=== PATIENT | male | born 1965 | race Caucasian/White ===

== ENCOUNTER → 2018-10-05 | Outpatient (CLI) | payer BC ==
[2018-10-05 13:03] LABS: HCT 41.3 % (39.0-53.0); HGB 14.5 gm/dL (13.0-17.5); MCH 29.6 pg (25.0-35.0); MCHC 35.1 g/dL (31.0-37.0); MCV 84.2 fL (80.0-100.0); Mean Platelet Volume 7.5; Platelet Count 209 k/uL (150-450); RDW 13.3 % (11.5-15.5); WBC 7.5 k/uL (3.8-10.6)
[2018-10-05 13:09] LABS: Partial Thromboplastin Time 24.3 sec (22.0-30.0); Prothrombin Time 10.3 sec (9.0-12.0)
[2018-10-05 13:14] LABS: Appearance,Urine Clear (Clear); Bilirubin,Urine 2+ (Negative); Blood,Urine Negative (Negative); Color,Urine Yellow; Glucose,Urine (UA) Negative (Negative); Ketones,Urine Negative (Negative); Leukocyte Esterase,Urine Negative (Negative); Nitrite,Urine Negative (Negative); PH, Urine 6.5 (5.0-8.0); Protein,Urine Negative (Negative); Specific Gravity,Urine 1.012 (1.001-1.035); Urobilinogen,Urine <2.0 mg/dL (<2.0)
[2018-10-05 13:29] LABS: Anion Gap 8 mmol/L; Blood Urea Nitrogen 18 mg/dL (9-20); Carbon Dioxide 26 mmol/L (22-30); Chloride 107 mmol/L (98-107); Potassium 4.6 mmol/L (3.5-5.1); Sodium 141 mmol/L (137-145)
== END | disposition home or self-care (01) ==
LOC: LABPAT 11:39
PROVIDERS: ATTEND Orthopaedic Surgery
DX: Z01.812 Encounter for preprocedural laboratory examination (principal)
CPT/HCPCS: 80051; 81003; 82565; 84520; 85027; 85610; 85730; 87070

== ENCOUNTER 2018-10-13 05:39 | Inpatient (IN) | payer BC ==
[~2018-10-13 05:39] MED LIST: ACETAMINOPHEN TAB 500 MG TAB PO ONE; DEXAMETHASONE SOD PHOSPHATE 10 MG/ML 1 ML VIAL IV ONE; HYDROmorphone 0.5 MG/0.5 ML SYRINGE IVP PRN; LIDOCAINE 1% 20 ML VIAL (10MG/ML) FOR IV START INTRADERMA PRN; MELOXICAM 7.5 MG TAB PO ONE; MIDAZOLAM 2 MG/2 ML VIAL IV PRN; ONDANSETRON 4 MG/2 ML VIAL IVP ONE; SCOPOLAMINE 1.5MG/72HR PATCH TRANSDERM ONE; TRANEXAMIC ACID 1,000 MG in SODIUM CHLORIDE 0.9% 100 ML IVPB ONE; ceFAZolin IN SWFI 2 GM/20 ML SYRINGE IVP ONE
[2018-10-13] MEDS: LACTATED RINGERS 1,000 ML IV SCH (06:11)
[2018-10-13] MEDS ORDERED: fentaNYL (PF) 50 MCG/ML 2 ML AMP IV ONE (06:45)
[2018-10-13] MEDS ORDERED: PROPOFOL 10 MG/ML 20 ML VIAL IV ONE (06:55)
[2018-10-13] MEDS ORDERED: SODIUM CHLORIDE 0.9% 100 ML BAG ONE (06:55)
[2018-10-13] MEDS ORDERED: MIDAZOLAM 2 MG/2 ML VIAL ONE (06:55)
[2018-10-13] MEDS ORDERED: fentaNYL (PF) 50 MCG/ML 2 ML AMP ONE (06:55)
[2018-10-13] MEDS ORDERED: TRANEXAMIC ACID 1,000 MG/10 ML VIAL ONE (06:55)
[2018-10-13] MEDS ORDERED: NA PHOS,M-B/NA PHOS,DI-BA 133 ML ENEMA RECTAL PRN (06:56)
[2018-10-13] MEDS ORDERED: HYDROcodone/APAP 5-325MG 1 EACH TAB PO PRN (06:56)
[2018-10-13] MEDS ORDERED: NALOXONE 0.4 MG/ML 1 ML VIAL IV PRN (06:56)
[2018-10-13] MEDS ORDERED: BISACODYL 10 MG SUPP RECTAL PRN (06:56)
[2018-10-13] MEDS ORDERED: HYDROmorphone 1 MG/ML 1 ML SYRINGE IVP PRN (06:56)
[2018-10-13] MEDS ORDERED: HYDROmorphone 0.5 MG/0.5 ML SYRINGE IVP PRN ×2 (06:56)
[2018-10-13] MEDS ORDERED: DIAZEPAM 5 MG TAB PO PRN (06:56)
[2018-10-13] MEDS ORDERED: MAGNESIUM HYDROXIDE 2,400 MG/10 ML CUP PO PRN (06:56)
[2018-10-13] MEDS: ROPIVACAINE 246.25 MG, EPINEPHrine 0.5 MG, KETOROLAC 30 MG, cloNIDine HCL/PF 80 MCG, WA... MISCELLANE ONE ×10 (06:59→08:06)
[2018-10-13] MEDS ORDERED: SODIUM CHLORIDE 0.9% 100 ML with ceFAZolin 2,000 MG IV ONE ×2 (07:17)
[2018-10-13] MEDS ORDERED: ROPIVACAINE 1,100 MG, SODIUM CHLORIDE 0.9% 500 ML 330 ML MISCELLANE PRN ×2 (07:39)
--- NOTE | 2018-10-13 07:41 | P.ONQ ---
Anesthesiology Proc Note - PNB - Peripheral Nerve Block Performed Right Adductor Canal Infusion Time Out Performed: Yes Procedure Start Time: 06:43 Indication: Acute Post-Operative Pain, Analgesia Specifically requested for management of pain by DrVipin: Amado Subramanian Sedation Type: Sedate with meaningful contact maintained Preparation: Sterile Prep Position: Supine Catheter Depth at Skin (cm): 7 Catheter: Indwelling Needle Types: Other (see comment) (Pajunk) Needle Size: 100mm (4") Needle Gauge: 18 Technique: Ultrasound Injectate: 0.5% Ropivacaine (see comment for volume) (20cc) Blood Aspirated: No Pain Paresthesia on Injection Noted: No Resistance on Injection: Normal Events: Uneventful and Well Tolerated
--- NOTE | 2018-10-13 08:41 | P.OP ---
Date of Procedure: 10/13/18 Preoperative Diagnosis: Severe osteoarthritis right knee Postoperative Diagnosis: Severe osteoarthritis right knee Procedure(s) Performed: Right total knee arthroplasty Implants: Basilio and Nephew Journey II CR Oxinium cruciate retaining femoral component size 6, right Basilio & Nephew Journey right nonporous tibial baseplate size 6 Basilio & Nephew Journey II, XLPE CR articular insert, size 9 mm, Size 5-6 right Basilio & Nephew Journey BCS resurfacing oval patellar component, 32 mm All components were cemented using Palacos R bone cement.. The articulation is Oxinium on polyethylene. Anesthesia: spinal Surgeon: Amado Subramanian Software Quality Assurance Specialist #1: Sabine Fatima Estimated Blood Loss (ml): 25 Pathology: other (Bone and cartilage) Condition: stable Disposition: PACU Indications for Procedure: After failure of conservative treatment we discussed the surgical and nonsurgical treatment options at length. Patient wishes to proceed with a total knee arthroplasty. Complications specific to this procedure were discussed at length, including but not limited to infection, bleeding, stiffness , and nerve injury. Patient is aware of all these complications and informed consent was obtained Operative Findings: The operative findings are consistent with severe osteoarthritis of the right knee Description of Procedure: Patient was seen in the preoperative area consent was reviewed and operative site was marked with a skin marker. An adductor canal pain catheter was placed by anesthesia in the preoperative area. Patient was then brought to the operating room and given preoperative antibiotics intravenously. A spinal anesthetic was administered by the anesthesia department. A tourniquet was placed on the upper thigh and the lower extremity was prepped and draped in usual sterile fashion. A gram of transexamic acid was given. A universal timeout was then performed which confirmed the patient's name, surgical site, ALLERGIES, and consent. The lower extremity was then exsanguinated and tourniquet was inflated to 250 mmHg. A standard and anterior midline approach to the knee was performed. The skin and subcutaneous tissue was dissected down to the patellar tendon. A medial parapatellar arthrotomy was then performed. The knee was then extended, the patellar was everted, and the knee was again flexed. Anterior horns of both menisci were excised, and a release was performed to the posterior medial aspect of the knee. On gross visual inspection, there was complete loss of articular cartilage in the medial and patellofemoral joint spaces. There was also significant cartilage damage in the lateral compartment. There were multiple periarticular osteophytes which were then removed with a Ronguer. The femoral canal was then opened with the appropriate drill, and the intramedullary femoral cutting guide was then placed and set for 5 of valgus. The distal femoral cutting block was then pinned in place, and the distal femur was then cut. The cutting block was then removed and the cut was checked for flatness. Next, the sizing guide was then placed and set for 3 external rotation based off of the epicondylar axis and Whitesides line. After the femur was sized, the appropriate 4-in-1 cutting block was then pinned in place. The anterior condyles were cut without notching. The posterior and chamfer cuts were performed while protecting the collateral ligaments. The cutting block was then removed, and the femoral canal was plugged with autologous bone. Attention was then directed to the tibia. The remaining ACL was removed with a Ronguer, and the tibia was then gently subluxed forward with a large bent knee retractor. Any remaining menisci was excised. The posterior lateral corner was cauterized in order to cauterize the lateral geniculate artery. The extra medullary tibial cutting guide was then placed, set for the appropriate rotation , slope, and depth of resection. The proximal tibia cutting guide was then pinned in place. Proximal tibia was then cut and sized. Next trials were then placed with the appropriate-sized insert. The knee was able to fully extend and flex to 130 and was stable throughout all range of motion. The knee was then extended, patella everted. Patella was then measured, and then using an osteotomy guide, the patella was cut at the appropriate level. The patella was then measured and drilled and the patella trial was then placed. The knee was then taken through range of motion with the patella trial and the patella tracked normally. The knee was then extended patella trial was then removed and the patella was everted. Knee was then flexed and lug holes were drilled through the femoral trial and the femoral trial was then removed. The tibial was then exposed, and the tibial broach guide was then pinned in place after it was set for the appropriate rotation to allow for the most coverage without overhang. The tibia was then reamed and broached. The cut surfaces of bone were then irrigated with pulsatile lavage. The posterior structures were injected with the ropivacaine solution. The knee was also irrigated with Irrisept solution. The components were then opened, the cement was mixed, and the components were then cemented in place. The cement was allowed to harden with the knee in full extension. While the cement was hardening, the remaining soft tissues were then injected with a ropivacaine solution, which consisted of 246.25 mg of ropivacaine, 0.5 mg of epinephrine, 30 mg of Toradol, 80 g of clonidine, and 48.45 mL of sterile water, for a total of 100 mL of fluid injected. After the cemented hardened. The tourniquet was released, and hemostasis was obtained. A second gram of transexamic acid was given. The knee was again irrigated. The knee was again taken through range of motion and found to be stable throughout all range of motion of 0-130 , and the patella tracked normally. The fascia was then closed with #2 strata fix suture. The subcutaneous tissue was closed with 3-0 Vicryl and 3-0 strata fix. Dermabond glue was used for the skin and placed with the knee in flexion. The patient was placed in a sterile silver dressing. Patient was then transferred to recovery room in stable condition. The special education assistant CHAD Ma was required due the complexity surgery and the need for a skilled surgical brace maker. She assisted in positioning, draping, retraction, and closure of the wound.
[2018-10-13 09:21] VITALS: RESP 16
--- NOTE | 2018-10-13 09:27 | XR ---
EXAMINATION TYPE: XR knee limited RT DATE OF EXAM: 10/13/2018 COMPARISON: NONE TECHNIQUE: Two views submitted HISTORY: Post op FINDINGS: There is a prosthetic knee in near anatomic alignment. There is soft tissue edema and emphysema. So ft tissue edema and extensive emphysema noted. IMPRESSION: 1. Postoperative change. Appears in near-anatomic alignment
[2018-10-13] MEDS: ASPIRIN 325 MG TAB PO SCH ×2 (10:29→20:00)
[2018-10-13] MEDS: ONDANSETRON 4 MG/2 ML VIAL IVP PRN ×2 (10:43→21:24)
[2018-10-13 10:54] VITALS: BMI 27.3
--- NOTE | 2018-10-13 11:00 | P.PN ---
Progress Note - Text Progress Note Date: 10/13/18 The patient is status post[ 1 right] adductor canal catheter placement. The catheter was placed for postoperative pain control, status post total [Right Knee] arthroplasty. Ropivacaine 0.2% is infusing at[ 4] mLs per hour. The patient has no complaints of[ ] lower extremity numbness or weakness. Patient' s VAS score is[ 4]-10. Assessment: Patient's adductor canal catheter is in place and working appropriately. Plan: continue infusion and adjust it as needed.
[2018-10-13] MEDS: SODIUM CHLORIDE 0.9% 1,000 ML IV SCH ×2 (11:27→22:17)
[2018-10-13] MEDS ORDERED: ALBUTEROL NEBULIZED 2.5 MG/3 ML INHALATION PRN (11:51)
[2018-10-13] MEDS: ALBUTEROL NEBULIZED 2.5 MG/3 ML INHALATION SCH ×2 (13:05→20:35)
[2018-10-13] MEDS: hydrOXYzine PAMOATE 25 MG CAP PO PRN ×2 (14:34→20:01)
[2018-10-13] MEDS: ceFAZolin IN SWFI 2 GM/20 ML SYRINGE IVP SCH ×2 (16:21→23:28)
[2018-10-13] MEDS: HYDROcodone/APAP 5-325MG 1 EACH TAB PO PRN (20:00)
[2018-10-13] MEDS: SENNOSIDES-DOCUSATE SODIUM 1 EACH TAB PO SCH (20:01)
[2018-10-13] MEDS: TAMSULOSIN 0.4 MG CAP.ER.24H PO SCH (20:01)
[2018-10-13] MEDS: SYMBICORT 160-4.5 MCG INHALER INHALATION SCH (20:35)
--- NOTE | 2018-10-13 23:10 | CONS ---
CONSULTATION DATE OF SERVICE: 10/13/2018 REASON FOR CONSULTATION: Advice regarding asthma, hypertension, multiple medical issues requested by Dr. Subramanian. HISTORY OF PRESENT ILLNESS: This 53-year-old gentleman with past medical history of asthma, hypertension, DJD, history of prostate disease, appendectomy, hernia repair being followed by Dr. Dougherty in the outpatient setting, underwent right total knee arthroplasty. The patient being closely monitored. There is no history of fever, rigors. No history of headache, loss of consciousness, seizures. No chest pain. No palpitations. PAST MEDICAL HISTORY: History of asthma, GERD, hypertension, DJD, history of prostate disorder, appendectomy, hernia repair. MEDICATIONS: Prior to admission home medications are reviewed and include: 1. Flomax 0.4 daily. 2. Omeprazole 20 mg daily. 3. Fish oil 1 p.o. daily. 4. Dilaudid. 5. Singular 10 mg q.h.s. 6. Zestril 10 mg daily. 7. Levothyroxine 100 mcg. 8. Advair 500/50 1 puff b.i.d. 9. Lodine 400 mg p.o. daily. ALLERGIES: FEATHERS AND MOLD. FAMILY HISTORY: No history of heart disease or strokes in the family. SOCIAL HISTORY: Previous history of smoking. No history of current smoking or alcohol intake. REVIEW OF SYSTEMS: ENT: No diminished hearing or vision. CARDIOVASCULAR SYSTEM: No angina. Mentioned earlier. GASTROINTESTINAL: No nausea or vomiting. no dysuria. NERVOUS SYSTEM: No numbness, weakness. ALLERGY/IMMUNOLOGY: As mentioned earlier. Hematology/Oncology: No history of anemia. ENDOCRINE: Hypothyroidism. CONSTITUTIONAL: As mentioned earlier. Dermatology: Negative. Rheumatology: Negative. Psychiatry: As mentioned earlier. PHYSICAL EXAMINATION: Alert and oriented times three. Pulse is 54, blood pressure is 114/73. Respiration 20. Temperature is normal. Pulse ox 92% on room air. HEENT: Conjunctivae normal. NECK: No jugular venous distention. Cardiovascular: S1, S2 muffled. RESPIRATORY : Breath sounds diminished in the bases. Bilateral scattered rhonchi and crackles. ABDOMEN: Soft, nontender. Legs status post surgery. Nervous system: Higher functions as mentioned earlier. Moves all four extremities. Lymphatics: No lymph nodes palpable in the neck, axillae or groin. Skin: No ulcer. No rash. Joints as mentioned earlier. LABS: Preop labs are noted within normal limits. ASSESSMENT: 1. Status post right total knee arthroplasty for severe degenerative joint disease. 2. Asthma mild intermittant 3. Gastroesophageal reflux disease. 4. Hypertension. 5. History of prostate disorder. 6. Appendectomy. 7. History of tonsillectomy. 8. Remote history of nicotine dependence. 9. FULL CODE. RECOMMENDATIONS AND DISCUSSION: In this 53-year-old gentleman who presented with multiple times after surgery. At this time, I recommend to continue current medications, management and symptomatic treatment. Otherwise at this time, I recommend resume the home medications and DVT prophylaxis. I would recommend incentive spirometry. Monitor blood pressure closely. We will follow the patient closely with you. The patient is to follow with primary physician closely after discharge. Thank you, Dr. Subramanian for letting us participate in the care of this patient. JOSIE / JARAD: [id number] / MTDD
[2018-10-14] MEDS: hydrOXYzine PAMOATE 25 MG CAP PO PRN ×3 (01:31→13:52)
[2018-10-14] MEDS: HYDROcodone/APAP 5-325MG 1 EACH TAB PO PRN ×2 (01:31→07:45)
[2018-10-14] MEDS: LACTATED RINGERS 1,000 ML IV SCH (02:53)
[2018-10-14 07:07] LABS: Basophils % (A) 0 %; Eosinophils # (A) 0.1 k/uL (0-0.7); Eosinophils % (A) 1 %; HGB 12.5 gm/dL (13.0-17.5); Lymphocytes # (A) 1.6 k/uL (1.0-4.8); Lymphocytes % (A) 17 %; MCH 28.6 pg (25.0-35.0); MCHC 32.9 g/dL (31.0-37.0); MCV 86.8 fL (80.0-100.0); Monocytes # (A) 0.7 k/uL (0-1.0); Monocytes % (A) 8 %; Neutrophils # (A) 6.8 k/uL (1.3-7.7); Neutrophils % (A) 72 %; Platelet Count 196 k/uL (150-450); RBC 4.38 m/uL (4.30-5.90); RDW 13.5 % (11.5-15.5); WBC 9.4 k/uL (3.8-10.6)
[2018-10-14] MEDS: LEVOTHYROXINE 112 MCG TAB PO SCH (07:45)
[2018-10-14] MEDS: MONTELUKAST 10 MG TAB PO SCH (07:47)
[2018-10-14] MEDS: MULTIVITAMINS, THERA 1 EACH TAB PO SCH (07:47)
[2018-10-14] MEDS: LISINOPRIL 10 MG TAB PO SCH (07:47)
[2018-10-14] MEDS: ASPIRIN 325 MG TAB PO SCH ×2 (07:47→21:09)
[2018-10-14] MEDS ORDERED: HYDROcodone/APAP 7.5-325MG 1 EACH TAB PO PRN (08:18)
[2018-10-14] MEDS: ALBUTEROL NEBULIZED 2.5 MG/3 ML INHALATION SCH ×3 (08:22→18:44)
[2018-10-14] MEDS: SYMBICORT 160-4.5 MCG INHALER INHALATION SCH ×2 (08:23→18:44)
--- NOTE | 2018-10-14 08:34 | P.DS ---
Providers Date of admission: 10/13/18 05:39 Expected date of discharge: 10/14/18 Attending physician: Amado Subramanian Consults: 10/13/18 06:56 Consult Physician Routine Consulting Provider: [place] Dougherty Consult Reason/Comments: medical management Do you want consulting provider notified?: Yes 10/13/18 09:09 Consult Physician Routine Consulting Provider: Evaristo Zuleta Consult Reason/Comments: medical management Do you want consulting provider notified?: Yes Primary care physician: [place] Dougherty - Discharge Diagnosis(es) (1) Osteoarthritis of right knee Current Visit: Yes Status: Acute (2) Status post total right knee replacement Current Visit: Yes Status: Acute Hospital Course: This is a 53-year-old male with known history of degenerative arthritis of the right knee. The patient presents for evaluation. After discussion and consideration patient elects to proceed with total knee arthroplasty. The patient is seen preoperatively by Dr. Subramanian and medically cleared for surgery by their primary care physician. Patient is admitted to [facility] on 10/13/2018 for total knee arthroplasty. The procedures performed without complication or sequelae. The patient is doing well postoperatively. Labs and vital signs are stable on day of discharge. On day of discharge patient's knee incision is healing well. There is minimal erythema. There is no drainage noted at this time. There is minimal soft tissue swelling to the knee. Patient has full foot and ankle motion without difficulty or pain. Calf is soft and nontender to palpation. Neurovascular status to the right lower extremity is intact. Patient is discharged home in good condition. Opioid start talking form is reviewed and signed at patient bedside. Please see med rec for accurate list of home medications. Plan - Discharge Summary Discharge Rx Participant: No New Discharge Prescriptions: New Aspirin 325 mg PO BID #60 tab HYDROcodone/APAP 7.5-325MG [[place] 7.5-325] 1 - 2 tab PO Q6H PRN #56 tab PRN Reason: Pain Ketorolac [Toradol] 10 mg PO Q6HR #12 tab Sennosides [Senokot] 1 tab PO BID #60 tablet No Action Montelukast [Singulair] 10 mg PO DAILY Lisinopril [Zestril] 10 mg PO DAILY Tamsulosin [Flomax] 0.4 mg PO DAILY Fluticasone/Salmeterol [Advair 500-50 Diskus] 1 inhalation PO RT-BID Etodolac [Lodine] 400 mg PO DAILY Omeprazole 20 mg PO DAILY Oxford-3 Fatty Acids/Fish Oil [Fish Oil 1,000 mg Softgel] 1 cap PO DAILY Multivitamins, Thera [Multivitamin (formulary)] 1 tab PO DAILY Levothyroxine Sodium 112 mcg PO DAILY Discharge Medication List Etodolac [Lodine] 400 mg PO DAILY 10/06/18 [History] Fluticasone/Salmeterol [Advair 500-50 Diskus] 1 inhalation PO RT-BID 10/06/18 [ History] Levothyroxine Sodium 112 mcg PO DAILY 10/06/18 [History] Lisinopril [Zestril] 10 mg PO DAILY 10/06/18 [History] Montelukast [Singulair] 10 mg PO DAILY 10/06/18 [History] Multivitamins, Thera [Multivitamin (formulary)] 1 tab PO DAILY 10/06/18 [History ] Oxford-3 Fatty Acids/Fish Oil [Fish Oil 1,000 mg Softgel] 1 cap PO DAILY [History] Omeprazole 20 mg PO DAILY 10/06/18 [History] Tamsulosin [Flomax] 0.4 mg PO DAILY 10/06/18 [History] Aspirin 325 mg PO BID #60 tab 10/14/18 [Rx] HYDROcodone/APAP 7.5-325MG [[place] 7.5-325] 1 - 2 tab PO Q6H PRN #56 tab [Rx] Ketorolac [Toradol] 10 mg PO Q6HR #12 tab 10/14/18 [Rx] Sennosides [Senokot] 1 tab PO BID #60 tablet 10/14/18 [Rx] Follow up Appointment(s)/Referral(s): Amado Subramanian DO [Doctor of Osteopathic Medicine] - 2 Weeks Ambulatory/Diagnostic Orders: Continuous Passive Motion (CPM) Machine [DME.AMB1] Time Frame: 3 Weeks, Location : None Selected Activity/Diet/Wound Care/Special Instructions: Weightbearing as tolerated with a walker. CPM 5-6h daily. Leave dressing intact. May be removed by home care nurse or by patient in 10 days. May shower with dressing on. Please follow up with [facility] and call with any questions or concerns, . Discharge Disposition: HOME WITH HOME HEALTH SERVICES
[2018-10-14] MEDS ORDERED: MELOXICAM 7.5 MG TAB PO SCH (09:00)
[2018-10-14] MEDS: KETOROLAC 30 MG/ML 1 ML VIAL IVP SCH ×2 (09:00→17:45)
[2018-10-14] MEDS ORDERED: TAMSULOSIN 0.4 MG CAP.ER.24H PO SCH (09:00)
--- NOTE | 2018-10-14 10:42 | CDI ---
Documentation Clarification Form Date: 10/14/2018 10:30:43 AM From: Maria Luz GeorgeINA, CCDS Admit Date: 10/13/2018 5:39:00 AM Patient Name: David Blake Visit Number: [id number] Discharge Date: ATTENTION: The Clinical Documentation Specialists (CDI) and [facility] Coding Staff appreciate your assistance in clarifying documentation. Please respond to the clarification below the line at the bottom and electronically sign. The CDI & [facility] Coding staff will review the response and follow-up if needed. Please note: Queries are made part of the Legal Health Record. If you have any questions, please contact the author of this message via ITS. Dr. Fran Haider Asthma is documented in the medical management consult without specificity. History/risk factors: Osteoarthritis, Asthma, GERD, Hypertension, Former smoker. Clinical Indicators: Presented for elective right total knee arthroplasty, stable postop. Vital Signs: P 73 - 55*; R 16; PO 95 - 92 - 95 RA Home meds: Singulair, Advair Diskus Treatment: IV Kefzol, IV Dilaudid, IV Zofran, IV Narcan, Albuterol INH, IV Cefazolin, Symbicort INH, po Singulair In your professional opinion, can you please further specify the following, if known? With or Without Acute Exacerbation COPD (specify with or without exacerbation) Chronic obstructive bronchitis Other, please specify ___ Unable to determine Severity Mild intermittent Mild persistent Moderate persistent Severe persistent Other, please specify ____ Unable to determine Form or Type Cough variant Childhood Exercise induced bronchospasm Extrinsic allergic Idiosyncratic Intrinsic nonallergic Late-onset Mixed Other, please specify____ Unable to determine (Last Revision: November 2017) MTDD
[2018-10-14] MEDS: PANTOPRAZOLE 40 MG TABLET PO SCH (12:11)
[2018-10-14] MEDS: HYDROcodone/APAP 7.5-325MG 1 EACH TAB PO PRN ×2 (13:51→21:09)
--- NOTE | 2018-10-14 18:01 | PN ---
PROGRESS NOTE DATE OF SERVICE: 10/14/2018 This 53-year-old gentleman who was admitted after right total knee arthroplasty is being closely monitored. Orthopedics is following the patient. No chest pain. No palpitations. No fever. On exam, alert and oriented x3. Pulse is 91, blood pressure 150/87, respiration 20, temperature 98.1, pulse ox 95% on room air. HEENT: Conjunctivae normal. NECK: No jugular venous distention. CARDIOVASCULAR SYSTEM: S1, S2 muffled. RESPIRATORY SYSTEM: Breath sounds diminished at the bases. A few scattered rhonchi. ABDOMEN: Soft, non-tender. NERVOUS SYSTEM: No focal deficit. LABS: WBC 9.4, hemoglobin 12.5. ASSESSMENT: 1. Status post right total knee joint arthroplasty for severe degenerative joint disease. 2. Asthma, mild, intermittent, chronic. 3. Gastroesophageal reflux disease. 4. Hypertension. 5. History of prostate disorder. 6. Appendectomy. 7. History of tonsillectomy. 8. Remote history of nicotine dependence. 9. FULL CODE. RECOMMENDATIONS AND DISCUSSION: I recommend to continue current management and symptomatic treatment. Otherwise at this time I would recommend resuming the home medications. DVT prophylaxis. Closely follow with Orthopedic Surgery. Further recommendations to follow. MMODL / IJN: [id number] /
[2018-10-14] MEDS: SENNOSIDES-DOCUSATE SODIUM 1 EACH TAB PO SCH (21:09)
[2018-10-14] MEDS: TAMSULOSIN 0.4 MG CAP.ER.24H PO SCH (21:09)
[2018-10-14] MEDS: SODIUM CHLORIDE 0.9% 1,000 ML IV SCH (23:50)
[2018-10-15] MEDS: KETOROLAC 30 MG/ML 1 ML VIAL IVP SCH ×3 (00:10→12:20)
[2018-10-15] MEDS: SODIUM CHLORIDE 0.9% 1,000 ML IV SCH (00:11)
[2018-10-15] MEDS: LACTATED RINGERS 1,000 ML IV SCH (03:38)
[2018-10-15] MEDS: LEVOTHYROXINE 112 MCG TAB PO SCH (05:47)
[2018-10-15] MEDS: ALBUTEROL NEBULIZED 2.5 MG/3 ML INHALATION SCH (07:16)
[2018-10-15] MEDS: SYMBICORT 160-4.5 MCG INHALER INHALATION SCH (07:16)
[2018-10-15] MEDS: ASPIRIN 325 MG TAB PO SCH (08:04)
[2018-10-15] MEDS: PANTOPRAZOLE 40 MG TABLET PO SCH (08:04)
[2018-10-15] MEDS: HYDROcodone/APAP 7.5-325MG 1 EACH TAB PO PRN ×2 (08:04→13:57)
[2018-10-15] MEDS: LISINOPRIL 10 MG TAB PO SCH (08:04)
[2018-10-15] MEDS: MULTIVITAMINS, THERA 1 EACH TAB PO SCH (08:04)
[2018-10-15] MEDS: MONTELUKAST 10 MG TAB PO SCH (08:04)
[2018-10-15] MEDS: hydrOXYzine PAMOATE 25 MG CAP PO PRN ×2 (08:05→13:57)
[2018-10-15 08:30] VITALS: BP 133/78; PULSE 105; TEMP 97.9
--- NOTE | 2018-10-15 21:03 | PN ---
PROGRESS NOTE DATE OF SERVICE: 10/15/2018 This 53-year-old gentleman admitted for right total knee arthroplasty is improving significantly. No chest pain. No palpitations. No fever. On exam, alert and oriented x3. Pulse is 105, blood pressure 133/79, respiration 16, temperature 97.9, pulse ox 93% on room air. HEENT: Conjunctivae normal. NECK: No jugular venous distention. CARDIOVASCULAR SYSTEM: S1, S2 muffled. RESPIRATORY SYSTEM: Breath sounds diminished at the bases. No rhonchi. No crackles. ABDOMEN: Soft. LEGS: Status post surgery. NERVOUS SYSTEM: No focal deficit. LABS: WBC 9.4, hemoglobin 12.5. ASSESSMENT: 1. Status post right total knee arthroplasty for severe degenerative joint disease. 2. Asthma, mild intermittent chronic. 3. Gastroesophageal reflux disease. 4. Hypertension. 5. History of prostate disorder. 6. Appendectomy. 7. History of tonsillectomy. 8. Remote history of nicotine dependence. 9. FULL CODE. RECOMMENDATIONS AND DISCUSSION: I recommend to continue current medications, continue with symptomatic treatment. Otherwise at this time I would recommend continuing home medications. Incentive spirometry. DVT prophylaxis. Rest of the recommendations per Orthopedic Surgery. Further recommendations to follow. MMODL / IJN: [id number] /
== END 2018-10-15 14:16 | disposition home health service (06) | DRG 470 ==
LOC: 2ORMAIN 05:39 → 4SSUR 08:57
PROVIDERS: ADMIT Orthopaedic Surgery; ATTEND Orthopaedic Surgery
PROC: 0SRC069 Replacement of Right Knee Joint with Oxidized Zirconium on Polyethylene Synthetic Substitute, Cemented, Open Approach (ICD-10-PCS; principal; 2018-10-13 07:00)
DX: M17.11 Unilateral primary osteoarthritis, right knee (principal); I10 Essential (primary) hypertension; J45.20 Mild intermittent asthma, uncomplicated; K21.9 Gastro-esophageal reflux disease without esophagitis; N40.0 Benign prostatic hyperplasia without lower urinary tract symptoms; E03.9 Hypothyroidism, unspecified; Z87.891 Personal history of nicotine dependence; Z79.890 Hormone replacement therapy; Z79.899 Other long term (current) drug therapy; Z90.49 Acquired absence of other specified parts of digestive tract; Z82.61 Family history of arthritis; Z82.49 Family history of ischemic heart disease and other diseases of the circulatory system; Z82.0 Family history of epilepsy and other diseases of the nervous system
CPT/HCPCS: 85025; 88300; 94640

== ENCOUNTER 2024-01-28 06:46 | Day surgery (SDC) | payer BC ==
[2024-01-26 13:38] VITALS: BMI 24.3
[2024-01-28 07:09] VITALS: TEMP 98.1
[2024-01-28] MEDS: IV FLUID CONTINUATION 1,000 ML IV ONE ×2 (07:15→08:52)
[2024-01-28] MEDS: LACTATED RINGERS 1,000 ML IV SCH (07:16)
[2024-01-28] MEDS ORDERED: PROPOFOL 10 MG/ML 20 ML VIAL IV ONE (08:53)
[2024-01-28] MEDS ORDERED: LIDOCAINE 1% INJ 10MG/ML (20 ML MDV) ONE (08:53)
--- NOTE | 2024-01-28 09:13 | P.PCN ---
Date of Procedure: 01/28/24 Procedure(s) Performed: Brief history: Patient is a pleasant 58-year-old white male scheduled for an elective upper endoscopy as well as colonoscopy as a part of evaluation of longstanding history of GERD/intermittent dysphagia to solids and screening for colon cancer Procedure performed: Esophagogastroduodenoscopy with biopsy Colonoscopy Preoperative diagnosis: History of GERD/intermittent dysphagia to solids Screening for colon cancer Anesthesia: MAC Procedure: After informed consent was obtained from the patient was brought into the endoscopy unit and IV sedation was administered by anesthesia under continuous monitoring. Initially upper endoscopy was done. The Olympus GF 160 video endos cope was inserted inserted into the mouth and esophagus intubated without any difficulty and was gradually advanced into the stomach and duodenum and carefully examined. The bulb and second part of the duodenum appeared normal. The scope was then withdrawn into the stomach adequately insufflated with air and upon careful examination the antrum had mild gastritis and biopsies were done from this area. Mucosa of the body, cardia and fundus appeared normal. The scope was then withdrawn into the esophagus. Mild hiatal hernia noted. The GE junction was located at 40 cm to the incisors. It appeared regular with 2 superficial erosions consistent with LA grade B reflux esophagitis rest of the esophagus appeared normal. Patient tolerated the procedure well. At this time the patient continued to remain sedation. Initial digital rectal examination was normal. Olympus CF 160 video colonoscope was then inserted into the rectum and gradually advanced to the cecum without any difficulty. Careful examination was performed as the scope was gradually being withdrawn. The prep was excellent. The cecum, ascending colon, transverse colon, descending colon, sigmoid colon and rectum appeared normal. Retroflexion was performed in the rectum and no lesions were noted. Patient tolerated the procedure well. Impression: 1. Upper endoscopy revealed small hiatal hernia, linear erosions in the distal esophagus consistent with LA grade B reflux esophagitis and mild antral gastritis 2. Colonoscopy was within normal limits with no evidence of colorectal neoplasia. Recommendations: Findings of this examination were discussed with the patient as well as his family. Follow-up with biopsy results. He was advised to increase her Protonix to 40 mg twice daily for 3 months and then decrease it to once daily and continue to follow antireflux measures.. Recommend repeat screening colonoscopy in 10 years.
[2024-01-28 09:41] VITALS: BP 123/78; PULSE 65; RESP 18
== END 2024-01-28 09:55 | disposition home or self-care (01) ==
LOC: ORWHC2ENDO 06:46
PROVIDERS: ATTEND Internal Medicine Gastroenterology
DX: Z12.11 Encounter for screening for malignant neoplasm of colon (principal); K29.50 Unspecified chronic gastritis without bleeding; K44.9 Diaphragmatic hernia without obstruction or gangrene; K21.9 Gastro-esophageal reflux disease without esophagitis; N40.0 Benign prostatic hyperplasia without lower urinary tract symptoms; I10 Essential (primary) hypertension; J44.89 Other specified chronic obstructive pulmonary disease; Z79.51 Long term (current) use of inhaled steroids; Z79.899 Other long term (current) drug therapy
CPT/HCPCS: 88305; 45378; 43239; J2001; J2704

== ENCOUNTER 2024-09-12 14:27 | Inpatient (IN) | payer BC ==
--- NOTE | 2024-09-12 14:59 | ED ---
SOB HPI - General Chief Complaint: Shortness of Breath Stated Complaint: fever aches and pains Time Seen by Provider: 09/12/24 14:38 Source: patient, RN notes reviewed Mode of arrival: wheelchair Limitations: no limitations - History of Present Illness Initial Comments: This is a 59-year-old male who presents to the emergency department for fevers and shortness of breath. Patient states that he was treated for pneumonia over [place] time. He was on 2 rounds of antibiotics and steroids. He finished the steroids about a week ago and the antibiotics most recently a couple of days ago. States that he was doing okay. Yesterday he started to feel little bit "off" but was still active and going about his day. Today they were out to eat and he suddenly started to feel very shaky and short of breath. States that he found his temperature to be elevated and took ibuprofen. While he has shortness of breath he denies any chest pain or coughing. He does report a history of COPD. MD Complaint: shortness of breath - Related Data Home Medications Medication Instructions Recorded Confirmed Levothyroxine Sodium 112 mcg PO DAILY 10/06/18 09/12/24 Multivitamins, Thera [Multivitamin 1 tab PO DAILY 10/06/18 09/12/24 (formulary)] Greenleaf-3 Fatty Acids/Fish Oil [Fish 1 cap PO DAILY 10/06/18 09/12/24 Oil 1,000 mg Softgel] Omeprazole 20 mg PO AC-SUPPER 10/06/18 09/12/24 Tamsulosin [Flomax] 0.4 mg PO HS 10/06/18 09/12/24 lisinopriL [Zestril] 10 mg PO DAILY 10/06/18 09/12/24 Cholecalciferol (Vitamin D3) 50 mcg PO DAILY 01/26/24 09/12/24 [Vitamin D3 (50 Mcg = 2000 Iu)] Etodolac [Lodine] 400 mg PO BID 01/26/24 09/12/24 Fluticasone/Umeclidin/Vilanter 1 puff INHALATION RT-DAILY 01/26/24 09/12/24 [Trelegy Ellipta 200-62.5-25] Allergies Allergy/AdvReac Type Severity Reaction Status Date / Time feathers Allergy Dyspnea Verified 09/12/24 17:29 mold Allergy Dyspnea Verified 09/12/24 17:29 Review of Systems ROS Statement: Those systems with pertinent positive or pertinent negative responses have been documented in the HPI. ROS Other: All systems not noted in ROS Statement are negative. Past Medical History Past Medical History: Asthma, COPD, GERD/Reflux, Hypertension, Osteoarthritis (OA), Prostate Disorder, Thyroid Disorder History of Any Multi-Drug Resistant Organisms: None Reported Past Surgical History: Appendectomy, Hernia Repair, Orthopedic Surgery, Tonsillectomy Additional Past Surgical History / Comment(s): RT KNEE SCOPE. COLONOSCOPY, egd Past Anesthesia/Blood Transfusion Reactions: No Reported Reaction Additional Past Anesthesia/Blood Transfusion Reaction / Comment(s): no blood transfusion Past Psychological History: No Psychological Hx Reported Smoking Status: Former smoker Past Alcohol Use History: None Reported Past Drug Use History: None Reported - Past Family History Mother Family Medical History: No Reported History Father Family Medical History: No Reported History General Exam Limitations: no limitations General appearance: alert, in no apparent distress Head exam: Present: atraumatic, normocephalic, normal inspection Respiratory exam: Present: decreased breath sounds, prolonged expiratory Cardiovascular Exam: Present: normal rhythm, tachycardia Neurological exam: Present: alert, oriented X3, CN II-XII intact Psychiatric exam: Present: normal affect, normal mood Skin exam: Present: warm, dry, intact, normal color. Absent: rash Course Vital Signs 09/12/24 09/12/24 09/12/24 14:30 14:44 15:00 Temperature 99.8 F H Pulse Rate 152 H Respiratory 20 26 H Rate Blood Pressure 138/75 O2 Sat by Pulse 90 L 89 L Oximetry 09/12/24 09/12/24 09/12/24 15:16 15:38 16:19 Temperature 100 F H Pulse Rate 120 H 116 H Respiratory 16 16 Rate Blood Pressure 124/73 113/79 O2 Sat by Pulse 92 L 93 L 94 L Oximetry 09/12/24 09/12/24 09/12/24 16:27 16:35 18:00 Temperature 98.5 F Pulse Rate 115 H 112 H 112 H Respiratory 18 Rate Blood Pressure 108/61 O2 Sat by Pulse 92 L Oximetry 09/12/24 09/12/24 09/12/24 19:52 19:59 23:05 Temperature Pulse Rate 102 H 104 H 96 Respiratory 18 Rate Blood Pressure 102/67 O2 Sat by Pulse 100 Oximetry 09/13/24 09/13/24 09/13/24 04:45 07:51 07:59 Temperature Pulse Rate 93 96 98 Respiratory 16 Rate Blood Pressure 106/67 O2 Sat by Pulse 93 L 93 L Oximetry 09/13/24 09:20 Temperature Pulse Rate 100 Respiratory 18 Rate Blood Pressure 127/91 O2 Sat by Pulse 96 Oximetry Medical Decision Making - Medical Decision Making This is a 59-year-old male who presents to the emergency department for shortness of breath. Was pt. sent in by a medical professional or institution? @ -No Did you speak to anyone other than the patient for history? @ -No Did you review nursing and triage notes? @ -Yes, and I agree, it is accurate with regards to the patient's symptoms. Were old charts reviewed? @ -No Differential Diagnosis? @ -Differential Dyspnea: Coronary syndrome, arrhythmia, tamponade, asthma, COPD, pulmonary embolism, pneumonia, pneumothorax, pulmonary effusion, anaphylaxis, diabetic ketoacidosis, flailed chest, pulmonary contusion, diaphragmatic rupture, anemia, neuromuscular, this is not meant to be an all-inclusive list. EKG interpreted by me (3pts min.)? @ -EKG interpreted by me demonstrating the following: Sinus tachycardia. Ventricular rate 138 bpm, OK interval 133 ms, QRS duration 90 ms, QTc 388 ms. X-rays interpreted by me (1pt min.)? @ -Chest x-ray obtained, my interpretation identifies no localized consolidations or infiltrates. CT interpreted by me (1pt min.)? @ -CT scan of the chest obtained. My interpretation identifies multifocal airspace opacities. U/S interpreted by me (1pt. min.)? @ -Not obtained What testing was considered but not performed? (CT, X-rays, U/S, labs)? Why? @ -None What meds were considered but not given? Why? @ -None Did you discuss the management of the patient with other professionals? @ -Yes, Dr. Andrews, who accepts the patient for admission. Did you reconcile home meds? @ -Yes Was smoking cessation discussed for >3mins.? @ -No Was critical care preformed (if so, how long)? @ -No Were there social determinants of health that impacted care today? How? (Homelessness, low income, unemployed, alcoholism, drug addiction, transportation, low edu. Level, literacy, decrease access to med. care, retirement, rehab)? @ -No Was there de-escalation of care discussed even if they declined? (Discuss DNR or withdrawal of care, Hospice)? @ -No What co-morbidities impacted this encounter? (DM, HTN, Smoking, COPD, CAD, Cancer, CVA, Hep., AIDS, mental health diagnosis, sleep apnea, morbid obesity)? @ -COPD, asthma Was patient admitted / discharged? @ -Admitted. Lab work demonstrates leukocytosis with a white blood cell count of 15.6. Lab work otherwise relatively unremarkable aside from some signs of dehydration. COVID, influenza, and RSV testing negative. Urinalysis negative for signs of infection. Chest x-ray negative, however there was high suspicion for respiratory illness and CT scan of the chest was obtained for better evaluation. This demonstrated signs of multifocal pneumonia. He continued to be tachycardic and short of breath, with his oxygen dropping into the high 80s on room air. He was subsequently put on 2 L via nasal cannula. He met sepsis criteria at [address] report returned confirming the source of infection. SIRS criteria include the leukocytosis, respiratory rate, and tachycardia. Patient admitted to medicine for further management of multifocal pneumonia and sepsis. He was given 2.5 L of IV fluids per the 30 to 40 mL/kg fluid requirement and started on maintenance IV fluids at 130 mL an hour. Blood culture obtained as well. He was also started on the pneumonia protocol with ceftriaxone and azithromycin. He did have some wheezing and decreased aeration, especially with the COPD. Scheduled and prn DuoNebs were ordered. Case discus sed with ED attending Dr. Choe. Undiagnosed new problem with uncertain prognosis? @ -None Drug Therapy requiring intensive monitoring for toxicity (Heparin, Nitro, Insulin, Cardizem)? @ -None Were any procedures done? @ -None Diagnosis/symptom? @ -Multifocal pneumonia, sepsis Acute, or Chronic, or Acute on Chronic? @ -Acute Uncomplicated (without systemic symptoms) or Complicated (systemic symptoms)? @ -Complicated Side effects of treatment? @ -None Exacerbation, Progression, or Severe Exacerbation] @ -Not applicable Poses a threat to life or bodily function? @ -Yes - Lab Data Result diagrams: 09/13/24 06:31 09/12/24 14:54 Lab Results 01/09/12/24 09/12/24 Range/Units 14:54 14:54 14:54 WBC 15.6 H (3.8-10.6) k/uL RBC 5.10 (4.30-5.90) m/uL Hgb 14.5 (13.0-17.5) gm/dL Hct 42.5 (39.0-53.0) % MCV 83.4 (80.0-100.0) fL MCH 28.4 (25.0-35.0) pg MCHC 34.0 (31.0-37.0) g/dL RDW 13.4 (11.5-15.5) % Plt Count 233 (150-450) k/uL MPV 8.4 Neutrophils % 93 % Lymphocytes % 4 % Monocytes % 2 % Eosinophils % 1 % Basophils % 0 % Neutrophils # 14.4 H (1.3-7.7) k/uL Lymphocytes # 0.6 L (1.0-4.8) k/uL Monocytes # 0.3 (0-1.0) k/uL Eosinophils # 0.2 (0-0.7) k/uL Basophils # 0.0 (0-0.2) k/uL PT 10.8 (10.0-12.5) sec INR 1.0 (<1.2) APTT 21.0 L (22.0-30.0) sec D-Dimer 0.54 (<0.60) mg/L FEU Sodium 137 (137-145) mmol/L Potassium 4.3 (3.5-5.1) mmol/L Chloride 100 (98-107) mmol/L Carbon Dioxide 25 (22-30) mmol/L Anion Gap 12 mmol/L BUN 25 H (9-20) mg/dL Creatinine 1.03 (0.66-1.25) mg/dL Est GFR (CKD-EPI)AfAm >90 (>60 ml/min/1.73 sqM) Est GFR (CKD-EPI)NonAf 79 (>60 ml/min/1.73 sqM) Glucose 113 H (74-99) mg/dL Plasma Lactic Acid Eric (0.7-2.0) mmol/L Calcium 10.4 H (8.4-10.2) mg/dL Magnesium 1.4 L (1.6-2.3) mg/dL Total Bilirubin 1.3 (0.2-1.3) mg/dL AST 24 (17-59) U/L ALT 27 (4-49) U/L Alkaline Phosphatase 48 (38-126) U/L Troponin I (0.000-0.034) ng/mL C-Reactive Protein (<1.0) mg/dL NT-Pro-B Natriuret Pep 43 pg/mL Total Protein 7.3 (6.3-8.2) g/dL Albumin 4.5 (3.5-5.0) g/dL Procalcitonin (0.02-0.50) ng/mL TSH 1.460 (0.465-4.680) mIU/L Urine Color Urine Appearance (Clear) Urine pH (5.0-8.0) Ur Specific [place] (1.001-1.035) Urine Protein (Negative) Urine Glucose (UA) (Negative) Urine Ketones (Negative) Urine Blood (Negative) Urine Nitrite (Negative) Urine Bilirubin (Negative) Urine Urobilinogen (<2.0) mg/dL Ur Leukocyte Esterase (Negative) Influenza Type A (PCR) (Not Detectd) Influenza Type B (PCR) (Not Detectd) Urine Legionella Ag (Negative) RSV (PCR) (Not Detectd) SARS-CoV-2 (PCR) (Not Detectd) 09/12/24 09/12/24 09/12/24 Range/Units 14:54 14:54 14:54 WBC (3.8-10.6) k/uL RBC (4.30-5.90) m/uL Hgb (13.0-17.5) gm/dL Hct (39.0-53.0) % MCV (80.0-100.0) fL MCH (25.0-35.0) pg MCHC (31.0-37.0) g/dL RDW (11.5-15.5) % Plt Count (150-450) k/uL MPV Neutrophils % % Lymphocytes % % Monocytes % % Eosinophils % % Basophils % % Neutrophils # (1.3-7.7) k/uL Lymphocytes # (1.0-4.8) k/uL Monocytes # (0-1.0) k/uL Eosinophils # (0-0.7) k/uL Basophils # (0-0.2) k/uL PT (10.0-12.5) sec INR (<1.2) APTT (22.0-30.0) sec D-Dimer (<0.60) mg/L FEU Sodium (137-145) mmol/L Potassium (3.5-5.1) mmol/L Chloride (98-107) mmol/L Carbon Dioxide (22-30) mmol/L Anion Gap mmol/L BUN (9-20) mg/dL Creatinine (0.66-1.25) mg/dL Est GFR (CKD-EPI)AfAm (>60 ml/min/1.73 sqM) Est GFR (CKD-EPI)NonAf (>60 ml/min/1.73 sqM) Glucose (74-99) mg/dL Plasma Lactic Acid Eric 2.0 (0.7-2.0) mmol/L Calcium (8.4-10.2) mg/dL Magnesium (1.6-2.3) mg/dL Total Bilirubin (0.2-1.3) mg/dL AST (17-59) U/L ALT (4-49) U/L Alkaline Phosphatase (38-126) U/L Troponin I <0.012 (0.000-0.034) ng/mL C-Reactive Protein 0.6 (<1.0) mg/dL NT-Pro-B Natriuret Pep pg/mL Total Protein (6.3-8.2) g/dL Albumin (3.5-5.0) g/dL Procalcitonin (0.02-0.50) ng/mL TSH (0.465-4.680) mIU/L Urine Color Urine Appearance (Clear) Urine pH (5.0-8.0) Ur Specific [place] (1.001-1.035) Urine Protein (Negative) Urine Glucose (UA) (Negative) Urine Ketones (Negative) Urine Blood (Negative) Urine Nitrite (Negative) Urine Bilirubin (Negative) Urine Urobilinogen (<2.0) mg/dL Ur Leukocyte Esterase (Negative) Influenza Type A (PCR) (Not Detectd) Influenza Type B (PCR) (Not Detectd) Urine Legionella Ag (Negative) RSV (PCR) (Not Detectd) SARS-CoV-2 (PCR) (Not Detectd) 09/12/24 09/12/24 09/12/24 Range/Units 14:54 14:57 15:35 WBC (3.8-10.6) k/uL RBC (4.30-5.90) m/uL Hgb (13.0-17.5) gm/dL Hct (39.0-53.0) % MCV (80.0-100.0) fL MCH (25.0-35.0) pg MCHC (31.0-37.0) g/dL RDW (11.5-15.5) % Plt Count (150-450) k/uL MPV Neutrophils % % Lymphocytes % % Monocytes % % Eosinophils % % Basophils % % Neutrophils # (1.3-7.7) k/uL Lymphocytes # (1.0-4.8) k/uL Monocytes # (0-1.0) k/uL Eosinophils # (0-0.7) k/uL Basophils # (0-0.2) k/uL PT (10.0-12.5) sec INR (<1.2) APTT (22.0-30.0) sec D-Dimer (<0.60) mg/L FEU Sodium (137-145) mmol/L Potassium (3.5-5.1) mmol/L Chloride (98-107) mmol/L Carbon Dioxide (22-30) mmol/L Anion Gap mmol/L BUN (9-20) mg/dL Creatinine (0.66-1.25) mg/dL Est GFR (CKD-EPI)AfAm (>60 ml/min/1.73 sqM) Est GFR (CKD-EPI)NonAf (>60 ml/min/1.73 sqM) Glucose (74-99) mg/dL Plasma Lactic Acid Eric (0.7-2.0) mmol/L Calcium (8.4-10.2) mg/dL Magnesium (1.6-2.3) mg/dL Total Bilirubin (0.2-1.3) mg/dL AST (17-59) U/L ALT (4-49) U/L Alkaline Phosphatase (38-126) U/L Troponin I (0.000-0.034) ng/mL C-Reactive Protein (<1.0) mg/dL NT-Pro-B Natriuret Pep pg/mL Total Protein (6.3-8.2) g/dL Albumin (3.5-5.0) g/dL Procalcitonin 0.29 (0.02-0.50) ng/mL TSH (0.465-4.680) mIU/L Urine Color Light Yellow Urine Appearance Clear (Clear) Urine pH 7.5 (5.0-8.0) Ur Specific [place] 1.017 (1.001-1.035) Urine Protein Negative (Negative) Urine Glucose (UA) Negative (Negative) Urine Ketones Negative (Negative) Urine Blood Negative (Negative) Urine Nitrite Negative (Negative) Urine Bilirubin 2+ H (Negative) Urine Urobilinogen <2.0 (<2.0) mg/dL Ur Leukocyte Esterase Negative (Negative) Influenza Type A (PCR) Not Detected (Not Detectd) Influenza Type B (PCR) Not Detected (Not Detectd) Urine Legionella Ag (Negative) RSV (PCR) Not Detected (Not Detectd) SARS-CoV-2 (PCR) Not Detected (Not Detectd) 09/12/24 Range/Units 15:35 WBC (3.8-10.6) k/uL RBC (4.30-5.90) m/uL Hgb (13.0-17.5) gm/dL Hct (39.0-53.0) % MCV (80.0-100.0) fL MCH (25.0-35.0) pg MCHC (31.0-37.0) g/dL RDW (11.5-15.5) % Plt Count (150-450) k/uL MPV Neutrophils % % Lymphocytes % % Monocytes % % Eosinophils % % Basophils % % Neutrophils # (1.3-7.7) k/uL Lymphocytes # (1.0-4.8) k/uL Monocytes # (0-1.0) k/uL Eosinophils # (0-0.7) k/uL Basophils # (0-0.2) k/uL PT (10.0-12.5) sec INR (<1.2) APTT (22.0-30.0) sec D-Dimer (<0.60) mg/L FEU Sodium (137-145) mmol/L Potassium (3.5-5.1) mmol/L Chloride (98-107) mmol/L Carbon Dioxide (22-30) mmol/L Anion Gap mmol/L BUN (9-20) mg/dL Creatinine (0.66-1.25) mg/dL Est GFR (CKD-EPI)AfAm (>60 ml/min/1.73 sqM) Est GFR (CKD-EPI)NonAf (>60 ml/min/1.73 sqM) Glucose (74-99) mg/dL Plasma Lactic Acid Eric (0.7-2.0) mmol/L Calcium (8.4-10.2) mg/dL Magnesium (1.6-2.3) mg/dL Total Bilirubin (0.2-1.3) mg/dL AST (17-59) U/L ALT (4-49) U/L Alkaline Phosphatase (38-126) U/L Troponin I (0.000-0.034) ng/mL C-Reactive Protein (<1.0) mg/dL NT-Pro-B Natriuret Pep pg/mL Total Protein (6.3-8.2) g/dL Albumin (3.5-5.0) g/dL Procalcitonin (0.02-0.50) ng/mL TSH (0.465-4.680) mIU/L Urine Color Urine Appearance (Clear) Urine pH (5.0-8.0) Ur Specific [place] (1.001-1.035) Urine Protein (Negative) Urine Glucose (UA) (Negative) Urine Ketones (Negative) Urine Blood (Negative) Urine Nitrite (Negative) Urine Bilirubin (Negative) Urine Urobilinogen (<2.0) mg/dL Ur Leukocyte Esterase (Negative) Influenza Type A (PCR) (Not Detectd) Influenza Type B (PCR) (Not Detectd) Urine Legionella Ag Negative (Negative) RSV (PCR) (Not Detectd) SARS-CoV-2 (PCR) (Not Detectd) - Radiology Data Radiology results: report reviewed, image reviewed Disposition Clinical Impression: Multifocal pneumonia, Sepsis Disposition: ADMITTED IP TO THIS HOSP
[2024-09-12] MEDS: ACETAMINOPHEN TAB 500 MG TAB PO STA (15:00)
[2024-09-12] MEDS: SODIUM CHLORIDE 0.9% 1,000 ML IV STA ×3 (15:01→17:32)
[2024-09-12 15:05] LABS: Basophils % (A) 0 %; Eosinophils # (A) 0.2 k/uL (0-0.7); Eosinophils % (A) 1 %; HCT 42.5 % (39.0-53.0); HGB 14.5 gm/dL (13.0-17.5); Lymphocytes # (A) 0.6 k/uL (1.0-4.8); Lymphocytes % (A) 4 %; MCH 28.4 pg (25.0-35.0); MCV 83.4 fL (80.0-100.0); Mean Platelet Volume 8.4; Monocytes # (A) 0.3 k/uL (0-1.0); Monocytes % (A) 2 %; Neutrophils # (A) 14.4 k/uL (1.3-7.7); Neutrophils % (A) 93 %; Platelet Count 233 k/uL (150-450); RDW 13.4 % (11.5-15.5); WBC 15.6 k/uL (3.8-10.6)
[2024-09-12 15:17] LABS: ALT 27 U/L (4-49); AST 24 U/L (17-59); African American GFR (CKD) >90 (>60 ml/min/1.73 sqM); Albumin 4.5 g/dL (3.5-5.0); Alkaline Phosphatase 48 U/L (38-126); Anion Gap 12 mmol/L; Blood Urea Nitrogen 25 mg/dL (9-20); Calcium 10.4 mg/dL (8.4-10.2); Carbon Dioxide 25 mmol/L (22-30); Chloride 100 mmol/L (98-107); Glucose 113 mg/dL (74-99); Magnesium 1.4 mg/dL (1.6-2.3); Non-African American GFR(CKD) 79 (>60 ml/min/1.73 sqM); Potassium 4.3 mmol/L (3.5-5.1); Sodium 137 mmol/L (137-145); Total Bilirubin 1.3 mg/dL (0.2-1.3); Total Protein 7.3 g/dL (6.3-8.2)
[2024-09-12 15:25] LABS: NT-Pro-B-Type Natriuretic Pept 43 pg/mL
--- NOTE | 2024-09-12 15:26 | XR ---
EXAMINATION TYPE: XR chest 2V DATE OF EXAM: 09/12/2024 3:11 PM COMPARISON: 09/12/2016 CLINICAL INDICATION: Male, 59 years old with history of difficulty breathing; TECHNIQUE: XR chest 2V Frontal and lateral views of the chest. FINDINGS: Lungs/Pleura: Low lung volumes are present. There is no evidence of pleural effusion, focal consolida tion, or pneumothorax. Pulmonary vascularity: Unremarkable. Heart/mediastinum: Cardiomediastinal silhouette is unremarkable. Musculoskeletal: No acute osseous pathology. IMPRESSION: Low lung volumes with few scattered prominent interstitial opacities not significantly changed from . [facility], , 09/12/2024 3:24 PM
[2024-09-12 15:28] LABS: Prothrombin Time 10.8 sec (10.0-12.5)
[2024-09-12] MEDS: MAGNESIUM OXIDE 400 MG TAB PO STA ×2 (15:36→15:37)
[2024-09-12 15:39] LABS: Influenza A Not Detected (Not Detectd); Influenza B Not Detected (Not Detectd); RSV Not Detected (Not Detectd)
[2024-09-12] MEDS ORDERED: RX INFO: IV CONTRAST WAS GIVEN 1 EACH MISC MISCELLANE PRN (15:51)
[2024-09-12 16:20] LABS: Appearance,Urine Clear (Clear); Bilirubin,Urine 2+ (Negative); Blood,Urine Negative (Negative); Color,Urine Light Yellow; Glucose,Urine (UA) Negative (Negative); Ketones,Urine Negative (Negative); Leukocyte Esterase,Urine Negative (Negative); Nitrite,Urine Negative (Negative); PH, Urine 7.5 (5.0-8.0); Protein,Urine Negative (Negative); Specific Gravity,Urine 1.017 (1.001-1.035); Urobilinogen,Urine <2.0 mg/dL (<2.0)
[2024-09-12] MEDS: IPRATROPIUM-ALBUTEROL 3 ML NEB INHALATION STA (16:26)
--- NOTE | 2024-09-12 16:38 | CT ---
EXAMINATION TYPE: CT chest w con DATE OF EXAM: 09/12/2024 4:17 PM COMPARISON: Chest radiograph from same day. CLINICAL INDICATION: Male, 59 years old with history of LISSA, fever; PHH, Pt. c/o increased SOB, fever and shakes - recently tx for pneumonia. Pt. reports hx of COPD. TECHNIQUE: Multiple axial images were obtained through the chest. Sagittal and coronal reformats were created for review. MIP was performed on a separate workstation. Contrast used:100ml mL of Isovue 300 with IV Contrast (None if empty) Oral contrast used: (None if empty) CT DLP: 365.3 mGycm, Automated exposure control for dose reduction was used. FINDINGS: LUNGS/ PLEURA: Scattered airspace opacities most pronounced in the lower lobes. Right greater than le ft.. No evidence for pneumothorax or pleural effusion. At least one airspace opacities has more of a nodular-like appearance. Example includes a nodular-like opacity series 201 image 32 measuring 10 mm. Right middle lobe pulmonary nodule measuring 5 mm series 201 image 42. There is an azygous fissure in the right upper lung. Scattered mild centrilobular emphysema changes. AIRWAY: A few opacified lower lobe airways noted including series 201 image 44 No evidence for bronch ial wall thickening or bronchiectasis. HEART: Heart is within normal limits for size. No evidence for pulmonary hypertension are atheroscler osis of the arterial vasculature. No calcifications are identified within the aortic valve or mitral valve. MEDIASTINUM: No evidence for lymphadenopathy. The esophagus without evidence for wall thickening. Mil d streaky edema in the prevascular space with AP window lymph node measuring up to 5 mm which is with in normal limits. Reactive given evidence of acute infectious/inflammatory process. VASCULATURE: No aortic aneurysm. Minimal scattered atherosclerotic plaque of the arterial vasculatur e. MUSCULOSKELETAL: No acute osseous abnormalities. There is multilevel degeneration changes of the spin e with osteophyte formation, vacuum disc phenomenon and facet joint arthropathy. T4 superior endplate mild compression deformity noted less than 25% height loss. More moderate to severe degeneration jeanette nges at C7-T1 with endplate sclerosis and osteophytes present. SOFT TISSUES/LYMPH NODES: Unremarkable. LOWER NECK: Visualized portions of the thyroid gland demonstrate no evidence for nodules. UPPER ABDOMEN: Visualized portions of the upper abdomen demonstrate normal appearance of the liver. T he gallbladder is unremarkable. The colon kim are without evidence for mass. Visualized kidneys are within normal limits without evidence for hydronephrosis or mass. The adrenal glands are within norm al limits. The pancreas is within normal limits. IMPRESSION: 1. Multifocal pneumonia, most pronounced in lung bases. Short-term follow-up recommended to ensure r esolution of some of the more nodular like opacities. 2. A few opacified large airways likely secondary to mucous plugging. Attention on follow-up imaging . [facility], , 09/12/2024 4:36 PM
[2024-09-12] MEDS ORDERED: IPRATROPIUM-ALBUTEROL 3 ML NEB INHALATION PRN (16:40)
[2024-09-12] MEDS ORDERED: PNEUMONIA PROTOCOL UTILIZED 1 EACH MISC PO PRN (16:40)
[2024-09-12] MEDS: IBUPROFEN 800 MG TAB PO STA (16:45)
[2024-09-12] MEDS: SODIUM CHLORIDE 0.9% 500 ML 500 ML IV ONE (16:46)
[2024-09-12] MEDS ORDERED: KETOROLAC 15 MG/ML 1 ML VIAL IVP PRN (16:53)
[2024-09-12] MEDS ORDERED: ONDANSETRON 4 MG/2 ML VIAL IVP PRN (16:53)
[2024-09-12] MEDS ORDERED: IBUPROFEN 400 MG TAB PO PRN (16:53)
[2024-09-12] MEDS ORDERED: NALOXONE 0.4 MG/ML 1 ML VIAL IV PRN (16:53)
[2024-09-12] MEDS ORDERED: MORPHINE SULFATE 4 MG/ML SYRINGE IV PRN (16:53)
[2024-09-12] MEDS ORDERED: HYDROcodone/APAP 5-325MG 1 EACH TAB PO PRN (16:53)
[2024-09-12] MEDS: AZITHROMYCIN 500 MG in SODIUM CHLORIDE 0.9% 250 ML IVPB STA (17:33)
--- NOTE | 2024-09-12 17:48 | P.HPIM ---
History of Present Illness H&P Date: 09/12/24 Patient is a 59-year-old male with history of hypertension, COPD, BPH, hypothyroidism presenting with rigors and low-grade fever. He claims that he has been dealing with pneumonia and COPD exacerbation since . He had 2 rounds of antibiotics as well as steroids. His last antibiotic dose was 2 days ago. He was feeling well over the last 2 days and this morning he started developing rigors. He has minimal cough, nonproductive, baseline shortness of breath and wheezing. He has not been using his rescue inhalers more often. His mother also has pneumonia. He denies any other sick contacts or travel history. Former smoker, no alcohol use. In the ED, temperature was 99.8, pulse 152, respiratory rate 20, blood pressure 138/75, saturating at 90% on room air. WBC 15.6, D-dimer 0.54, creatinine 1.03, magnesium 1.4, calcium 10.4, troponin negative, proBNP 43, CRP negative, TSH 1.4, urinalysis negative, respiratory viral panel negative. EKG independently interpreted, shows sinus tachycardia. Chest x-ray independently interpreted, shows opacities at the bases bilaterally. Chest CT showed multifocal pneumonia more pronounced at the bases, few opacified large airway secondary mucous plugging. Patient started on IV azithromycin, IV ceftriaxone in the ED. Is being admitted for COPD exacerbation and community-acquired pneumonia. Pertinent positives and negatives as discussed in HPI, a complete review of systems was performed and all other systems are negative. Patient seen and examined at bedside. Vital signs reviewed General: nontoxic, no distress, appears at stated age Derm: warm, dry Head: atraumatic, normocephalic, symmetric Eyes: EOMI, no lid lag, anicteric sclera, pupils equal round reactive to light ENT: Nose and ears atraumatic Neck: No thyromegaly, supple Mouth: no lip lesion, mucus membranes moist Cardiovascular: S1S2 reg, tachycardic, no murmur, no edema Lungs: Bibasilar rales, no wheeze, no accessory muscle use Abdominal: soft, nontender to palpation, no guarding, no appreciable organomegaly Ext: no gross muscle atrophy, muscle strength muscle strength 5 out of 5 in all 4 extremities, no contractures Neuro: CN II-XII grossly intact Psych: Alert, oriented, appropriate affect Assessment/Plan: Active: Acute hypoxic respiratory failure Sepsis secondary to community-acquired pneumonia COPD, not in exacerbation -Continue to wean oxygen -Continue azithromycin 500 mg daily p.o., IV ceftriaxone 2 g every 24 hours -Sputum cultures, blood cultures, Legionella urine antigen, procalcitonin pending -On DuoNebs 4 times daily, every 4 hours as needed -Continue normal saline at 130 cc an hour History of hypertension -Hold antihypertensive in the setting of sepsis Chronic: BPH Hypothyroidism GERD The patient is admitted with an anticipated greater than 2 midnight stay as inpatient status for evaluation of community-acquired pneumonia. Surrogate decision-maker: CODE STATUS: Full code DVT prophylaxis: Lovenox Anticipated discharge date: Pending clinical course Anticipated discharge place: Pending clinical course A total of 65 minutes was spent on the care of this complex patient more than 50% of the time was spent in counseling and care coordination. Past Medical History Past Medical History: Asthma, COPD, GERD/Reflux, Hypertension, Osteoarthritis (OA), Prostate Disorder, Thyroid Disorder History of Any Multi-Drug Resistant Organisms: None Reported Past Surgical History: Appendectomy, Hernia Repair, Orthopedic Surgery, Tonsillectomy Additional Past Surgical History / Comment(s): RT KNEE SCOPE. COLONOSCOPY, egd Past Anesthesia/Blood Transfusion Reactions: No Reported Reaction Additional Past Anesthesia/Blood Transfusion Reaction / Comment(s): no blood transfusion Past Psychological History: No Psychological Hx Reported Smoking Status: Former smoker Past Alcohol Use History: None Reported Past Drug Use History: None Reported - Past Family History Mother Family Medical History: No Reported History Father Family Medical History: No Reported History Medications and Allergies Home Medications Medication Instructions Recorded Confirmed Type Levothyroxine Sodium 112 mcg PO DAILY 10/06/18 09/12/24 History Multivitamins, Thera [Multivitamin 1 tab PO DAILY 10/06/18 09/12/24 History (formulary)] [place]-3 Fatty Acids/Fish Oil [Fish 1 cap PO DAILY 10/06/18 09/12/24 History Oil 1,000 mg Softgel] Omeprazole 20 mg PO AC-SUPPER 10/06/18 09/12/24 History Tamsulosin [Flomax] 0.4 mg PO HS 10/06/18 09/12/24 History lisinopriL [Zestril] 10 mg PO DAILY 10/06/18 09/12/24 History Cholecalciferol (Vitamin D3) 50 mcg PO DAILY 01/26/24 09/12/24 History [Vitamin D3 (50 Mcg = 2000 Iu)] Etodolac [Lodine] 400 mg PO BID 01/26/24 09/12/24 History Fluticasone/Umeclidin/Vilanter 1 puff INHALATION RT-DAILY 01/26/24 09/12/24 History [Trelegy Ellipta 200-62.5-25] Allergies Allergy/AdvReac Type Severity Reaction Status Date / Time feathers Allergy Dyspnea Verified 09/12/24 17:29 mold Allergy Dyspnea Verified 09/12/24 17:29 Physical Exam Vitals: Vital Signs Temp Pulse Resp BP Pulse Ox 09/12/24 16:35 112 H 09/12/24 16:27 115 H 09/12/24 16:19 100 F H 116 H 16 113/79 94 L 09/12/24 15:38 120 H 16 124/73 93 L 09/12/24 15:16 92 L 09/12/24 15:00 89 L 09/12/24 14:44 26 H 09/12/24 14:30 99.8 F H 152 H 20 138/75 90 L Intake and Output 09/12/24 09/12/24 09/12/24 06:59 14:59 22:59 Other: Weight 79.379 kg Results CBC & Chem 7: 09/12/24 14:54 09/12/24 14:54 Labs: Abnormal Lab Results - Last 24 Hours (Table) 09/12/24 09/12/24 09/12/24 Range/Units 14:54 14:54 14:54 WBC 15.6 H (3.8-10.6) k/uL Neutrophils # 14.4 H (1.3-7.7) k/uL Lymphocytes # 0.6 L (1.0-4.8) k/uL APTT 21.0 L (22.0-30.0) sec BUN 25 H (9-20) mg/dL Glucose 113 H (74-99) mg/dL Calcium 10.4 H (8.4-10.2) mg/dL Magnesium 1.4 L (1.6-2.3) mg/dL Urine Bilirubin (Negative) 09/12/24 Range/Units 15:35 WBC (3.8-10.6) k/uL Neutrophils # (1.3-7.7) k/uL Lymphocytes # (1.0-4.8) k/uL APTT (22.0-30.0) sec BUN (9-20) mg/dL Glucose (74-99) mg/dL Calcium (8.4-10.2) mg/dL Magnesium (1.6-2.3) mg/dL Urine Bilirubin 2+ H (Negative)
[2024-09-12] MEDS: IPRATROPIUM-ALBUTEROL 3 ML NEB INHALATION SCH (19:48)
[2024-09-12] MEDS: ETODOLAC 400 MG TAB PO SCH (21:13)
[2024-09-12] MEDS: TAMSULOSIN 0.4 MG CAP.ER.24H PO SCH (21:13)
[2024-09-13] MEDS: LEVOTHYROXINE 112 MCG TAB PO SCH (06:17)
[2024-09-13] MEDS: TIOTROPIUM 2.5 MCG INHALER INHALATION SCH (07:51)
[2024-09-13 08:58] LABS: HCT 38.2 % (39.6-50.0); HGB 12.7 g/dL (13.0-17.0); MCHC 33.2 g/dL (32.0-37.0); MCV 84.1 FL (80.0-97.0); Mean Platelet Volume 10.9 FL (9.5-12.2); NRBC Per 100 WBC 0 X 10*3/uL (0.00-0.01); Platelet Count 203 X 10*3/uL (140-440); RBC 4.54 X 10*6/uL (4.40-5.60); WBC 15.04 X 10*3/uL (4.50-10.00)
[2024-09-13] MEDS ORDERED: lisinopriL 10 MG TAB PO SCH (09:00)
[2024-09-13] MEDS: AZITHROMYCIN 500 MG TAB PO SCH (09:05)
[2024-09-13] MEDS: CHOLECALCIFEROL 25 MCG (1000 IU) TABLET PO SCH (09:05)
[2024-09-13] MEDS: ENOXAPARIN 40 MG/0.4 ML SYRINGE SQ SCH (09:05)
[2024-09-13] MEDS: MULTIVITAMINS, THERA 1 EACH TAB PO SCH (09:06)
[2024-09-13] MEDS: ACETAMINOPHEN TAB 325 MG TAB PO PRN (09:12)
[2024-09-13] MEDS: PANTOPRAZOLE 40 MG/10 ML VIAL IV SCH (09:16)
[2024-09-13] MEDS: NON FORMULARY DRUG (Omega-3 Fatty Acids/Fish Oil [Fish Oil 1,000 Mg Softgel] 1 EACH Capsul PO SCH (09:22)
[2024-09-13 10:27] LABS: Basophils # (A) 0.05 X 10*3/uL (0.00-0.10); Basophils % (A) 0.3 %; Eosinophils # (A) 0.06 X 10*3/uL (0.04-0.35); Eosinophils % (A) 0.4 %; Lymphocytes # (A) 0.98 X 10*3/uL (0.90-5.00); Lymphocytes % (A) 6.5 %; Monocytes # (A) 0.95 X 10*3/uL (0.20-1.00); Monocytes % (A) 6.3 %; Neutrophils # (A) 12.89 X 10*3/uL (1.80-7.70); Neutrophils % (A) 85.8 %
[2024-09-13 10:42] LABS: Blood Urea Nitrogen 17.6 mg/dL (9.0-27.0); Calcium 8.8 mg/dL (8.7-10.3); Carbon Dioxide 22.1 mmol/L (21.6-31.8); Chloride 108 mmol/L (96-109); Glucose 94 mg/dL (70-110); Potassium 4.3 mmol/L (3.5-5.5); Sodium 140 mmol/L (135-145)
[2024-09-13] MEDS: predniSONE 20 MG TAB PO SCH (11:56)
--- NOTE | 2024-09-13 13:51 | P.PN ---
Subjective Progress Note Date: 09/13/24 Patient is a 59-year-old male with history of hypertension, COPD, BPH, hypothyroidism presenting with rigors and low-grade fever. He claims that he has been dealing with pneumonia and COPD exacerbation since . He had 2 rounds of antibiotics as well as steroids. His last antibiotic dose was 2 days ago. He was feeling well over the last 2 days and this morning he started developing rigors. He has minimal cough, nonproductive, baseline shortness of breath and wheezing. He has not been using his rescue inhalers more often. His mother also has pneumonia. He denies any other sick contacts or travel history. Former smoker, no alcohol use. In the ED, temperature was 99.8, pulse 152, respiratory rate 20, blood pressure 138/75, saturating at 90% on room air. WBC 15.6, D-dimer 0.54, creatinine 1.03, magnesium 1.4, calcium 10.4, troponin negative, proBNP 43, CRP negative, TSH 1.4, urinalysis negative, respiratory viral panel negative. EKG independently interpreted, shows sinus tachycardia. Chest x-ray independently interpreted, shows opacities at the bases bilaterally. Chest CT showed multifocal pneumonia more pronounced at the bases, few opacified large airway secondary mucous plugging. Patient started on IV azithromycin, IV ceftriaxone in the ED. Is being admitted for COPD exacerbation and community-acquired pneumonia. 09/13/2024 Patient seen and examined at bedside. No events overnight. He is denying shortness of breath or chest pain. Pertinent positives and negatives as discussed in HPI, a complete review of systems was performed and all other systems are negative. Vital signs reviewed General: nontoxic, no distress, appears at stated age Derm: warm, dry Head: atraumatic, normocephalic, symmetric Eyes: EOMI, no lid lag, anicteric sclera, pupils equal round reactive to light ENT: Nose and ears atraumatic Neck: No thyromegaly, supple Mouth: no lip lesion, mucus membranes moist Cardiovascular: S1S2 reg, no murmur, no edema Lungs: Bibasilar rales and wheeze, no accessory muscle use Abdominal: soft, nontender to palpation, no guarding, no appreciable organomegaly Ext: no gross muscle atrophy, muscle strength muscle strength 5 out of 5 in all 4 extremities, no contractures Neuro: CN II-XII grossly intact Psych: Alert, oriented, appropriate affect Today's pertinent Labs: WBC 15.04 with left shift, hemoglobin 12.7, BUN 17.6, calcium 8.8 Today's imaging: No new imaging Assessment/Plan: Active: Acute hypoxic respiratory failure, resolved Sepsis secondary to community-acquired pneumonia COPD, mild exacerbation -Continue to wean oxygen -Continue azithromycin 500 mg daily p.o., IV ceftriaxone 2 g every 24 hours Begin prednisone 60 mg daily, DuoNebs 4 times daily, every 4 hours as needed -Sputum cultures, blood cultures pending, Legionella urine antigen negative, procalcitonin negative History of hypertension -Hold antihypertensive in the setting of sepsis Hypomagnesemia Given magnesium oxide Check magnesium in morning Chronic: BPH Hypothyroidism GERD Surrogate decision-maker: CODE STATUS: Full code DVT prophylaxis: Lovenox Anticipated discharge date: 2 to [address]: Home I have seen and evaluated the patient today. Discussed with the resident and agree with the residents finding and plan as documented in the resident's note. Changes highlighted in blue font. Objective - Vital Signs Vital signs: Vital Signs Temp 98.5 F 09/12/24 18:00 Pulse 96 09/13/24 07:51 Resp 16 09/13/24 04:45 BP 106/67 09/13/24 04:45 Pulse Ox 93 L 09/13/24 07:51 FiO2 Intake & Output 09/12/24 09/13/24 09/13/24 18:59 06:59 18:59 Weight 79.379 kg - Labs CBC & Chem 7: 09/13/24 06:31 09/13/24 06:31 Labs: Abnormal Lab Results - Last 24 Hours (Table) 09/12/24 09/12/24 09/12/24 Range/Units 14:54 14:54 14:54 WBC 15.6 H (3.8-10.6) k/uL Neutrophils # 14.4 H (1.3-7.7) k/uL Lymphocytes # 0.6 L (1.0-4.8) k/uL APTT 21.0 L (22.0-30.0) sec BUN 25 H (9-20) mg/dL Glucose 113 H (74-99) mg/dL Calcium 10.4 H (8.4-10.2) mg/dL Magnesium 1.4 L (1.6-2.3) mg/dL Urine Bilirubin (Negative) 09/12/24 Range/Units 15:35 WBC (3.8-10.6) k/uL Neutrophils # (1.3-7.7) k/uL Lymphocytes # (1.0-4.8) k/uL APTT (22.0-30.0) sec BUN (9-20) mg/dL Glucose (74-99) mg/dL Calcium (8.4-10.2) mg/dL Magnesium (1.6-2.3) mg/dL Urine Bilirubin 2+ H (Negative)
[2024-09-13] MEDS ORDERED: NON FORMULARY DRUG (Omeprazole [Omeprazole] 20 MG Capsule.Dr) PO SCH (17:30)
[2024-09-14 07:58] VITALS: BP 143/91; RESP 16; TEMP 98.2
[2024-09-14 08:46] LABS: Blood Urea Nitrogen 13.1 mg/dL (9.0-27.0); Calcium 9.5 mg/dL (8.7-10.3); Carbon Dioxide 21.3 mmol/L (21.6-31.8); Chloride 108 mmol/L (96-109); Glucose 103 mg/dL (70-110); Magnesium 1.9 mg/dL (1.5-2.4); Sodium 141 mmol/L (135-145)
[2024-09-14] MEDS: lisinopriL 10 MG TAB PO SCH (08:47)
[2024-09-14 09:05] LABS: Basophils # (A) 0.03 X 10*3/uL (0.00-0.10); Basophils % (A) 0.2 %; Eosinophils # (A) 0.01 X 10*3/uL (0.04-0.35); Eosinophils % (A) 0.1 %; HCT 37.3 % (39.6-50.0); HGB 11.9 g/dL (13.0-17.0); Lymphocytes # (A) 1.29 X 10*3/uL (0.90-5.00); MCH 27.2 pg (27.0-32.0); MCHC 31.9 g/dL (32.0-37.0); MCV 85.2 FL (80.0-97.0); Mean Platelet Volume 11.4 FL (9.5-12.2); Monocytes # (A) 0.87 X 10*3/uL (0.20-1.00); Monocytes % (A) 5.4 %; NRBC Per 100 WBC 0 X 10*3/uL (0.00-0.01); Neutrophils # (A) 13.67 X 10*3/uL (1.80-7.70); Neutrophils % (A) 85.1 %; Platelet Count 218 X 10*3/uL (140-440); RBC 4.38 X 10*6/uL (4.40-5.60); RDW 14.1 % (11.5-14.5); WBC 16.06 X 10*3/uL (4.50-10.00)
[2024-09-14] MEDS: ALBUTEROL NEBULIZED 2.5 MG/3 ML INHALATION SCH (09:17)
[2024-09-14] MEDS: SYMBICORT 160-4.5 MCG INHALER INHALATION SCH (09:17)
[2024-09-14 11:59] VITALS: PULSE 92
--- NOTE | 2024-09-14 12:31 | P.DS ---
Providers Date of admission: 09/12/24 17:30 Expected date of discharge: 09/14/24 Attending physician: Tacos Andrews Primary care physician: Feng Yapanaid [facility] Course: Discharge diagnoses; Acute hypoxic respiratory failure Sepsis secondary to community-acquired pneumonia COPD, mild exacerbation History of hypertension Hypomagnesemia BPH Hypothyroidism GERD Hospital course; Patient is a 59-year-old male with history of hypertension, COPD, BPH, hypothyroidism presenting with rigors and low-grade fever. He claims that he has been dealing with pneumonia and COPD exacerbation since [place]. He had 2 rounds of antibiotics as well as steroids. His last antibiotic dose was 2 days ago. He was feeling well over the last 2 days and this morning he started developing rigors. He has minimal cough, nonproductive, baseline shortness of breath and wheezing. He has not been using his rescue inhalers more often. His mother also has pneumonia. He denies any other sick contacts or travel history. Former smoker, no alcohol use. In the ED, temperature was 99.8, pulse 152, respiratory rate 20, blood pressure 138/75, saturating at 90% on room air. WBC 15.6, D-dimer 0.54, creatinine 1.03, magnesium 1.4, calcium 10.4, troponin negative, proBNP 43, CRP negative, TSH 1.4, urinalysis negative, respiratory viral panel negative. EKG independently interpreted, shows sinus tachycardia. Chest x-ray independently interpreted, shows opacities at the bases bilaterally. Chest CT showed multifocal pneumonia more pronounced at the bases, few opacified large airway secondary mucous plugging. Patient started on IV azithromycin, IV ceftriaxone in the ED. Is being admitted for COPD exacerbation and community-acquired pneumonia. During hospital course treated patient treated for community-acquired pneumonia and mild COPD exacerbation. Initial blood culture with no growth. Sputum culture with moderate PMN, moderate gram-positive cocci and few gram-positive and negative bacilli. Patient is discharged in stable condition to home. He is to continue azithromycin, cefdinir and prednisone and complete full course beginning tomorrow. He is to follow-up with his PCP and pulmonology. Vital signs reviewed General: nontoxic, no distress, appears at stated age Derm: warm, dry Head: atraumatic, normocephalic, symmetric Eyes: EOMI, no lid lag, anicteric sclera, pupils equal round reactive to light ENT: Nose and ears atraumatic Neck: No thyromegaly, supple Mouth: no lip lesion, mucus membranes moist Cardiovascular: S1S2 reg, no murmur, no edema Lungs: Bilateral lung sounds clear to auscultation, no accessory muscle use Abdominal: soft, nontender to palpation, no guarding, no appreciable organomegaly Ext: no gross muscle atrophy, muscle strength muscle strength 5 out of 5 in all 4 extremities, no contractures Neuro: CN II-XII grossly intact Psych: Alert, oriented, appropriate affect Dictation was produced using [employer] dictation software. please excuse any gramm atical, word or spelling errors. A total of 36 minutes of time were spent preparing this complex discharge summary. Patient was discharged on 09/14/2024 at 1128. I have seen and evaluated the patient today. Discussed with the resident and agree with the residents finding and plan as documented in the resident's note. Changes highlighted in blue font. Patient Condition at Discharge: Stable Plan - Discharge Summary Discharge Rx Participant: No New Discharge Prescriptions: New Cefdinir 300 mg PO Q12HR #6 cap predniSONE [Deltasone] 60 mg PO DAILY #9 tab Azithromycin [Zithromax] 500 mg PO DAILY 1 Days #1 tab Continue lisinopriL [Zestril] 10 mg PO DAILY Tamsulosin [Flomax] 0.4 mg PO HS Omeprazole 20 mg PO AC-SUPPER [place]-3 Fatty Acids/Fish Oil [Fish Oil 1,000 mg Softgel] 1 cap PO DAILY Multivitamins, Thera [Multivitamin (formulary)] 1 tab PO DAILY Levothyroxine Sodium 112 mcg PO DAILY Fluticasone/Umeclidin/Vilanter [Trelegy Ellipta 200-62.5-25] 1 puff INHALATION RT-DAILY Etodolac [Lodine] 400 mg PO BID Cholecalciferol (Vitamin D3) [Vitamin D3 (50 Mcg = 2000 Iu)] 50 mcg PO DAILY Discharge Medication List Levothyroxine Sodium 112 mcg PO DAILY 10/06/18 [History] Multivitamins, Thera [Multivitamin (formulary)] 1 tab PO DAILY 10/06/18 [History] [place]-3 Fatty Acids/Fish Oil [Fish Oil 1,000 mg Softgel] 1 cap PO DAILY 10/06/18 [History] Omeprazole 20 mg PO AC-SUPPER 10/06/18 [History] Tamsulosin [Flomax] 0.4 mg PO HS 10/06/18 [History] lisinopriL [Zestril] 10 mg PO DAILY 10/06/18 [History] Cholecalciferol (Vitamin D3) [Vitamin D3 (50 Mcg = 2000 Iu)] 50 mcg PO DAILY 01/26/24 [History] Etodolac [Lodine] 400 mg PO BID 01/26/24 [History] Fluticasone/Umeclidin/Vilanter [Trelegy Ellipta 200-62.5-25] 1 puff INHALATION RT-DAILY 01/26/24 [History] Azithromycin [Zithromax] 500 mg PO DAILY 1 Days #1 tab 09/14/24 [Rx] Cefdinir 300 mg PO Q12HR #6 cap 09/14/24 [Rx] predniSONE [Deltasone] 60 mg PO DAILY #9 tab 09/14/24 [Rx] Follow up Appointment(s)/Referral(s): Pavel Neely MD [Primary Care Provider] - 1-2 days (office busy at time of discharge Please call to schedule appointment ) Saray Guerrero MD [STAFF PHYSICIAN] - 11/29/24 2:15 pm Patient Instructions/Handouts: COPD (Chronic Obstructive Pulmonary Disease) (DC), Community Acquired Pneumonia (DC) Activity/Diet/Wound Care/Special Instructions: Please follow-up with PCP and pulmonary. Finish course of medication, begin tomorrow. Discharge Disposition: HOME SELF-CARE
== END 2024-09-14 13:25 | disposition home or self-care (01) | DRG 871 ==
LOC: EC 14:27 → 4SSUR 17:30
PROVIDERS: ADMIT Student in an Organized Health Care Education/Training Program; ATTEND Student in an Organized Health Care Education/Training Program
DX: A41.89 Other specified sepsis (principal); J15.69 Pneumonia due to other Gram-negative bacteria; J96.01 Acute respiratory failure with hypoxia; J15.9 Unspecified bacterial pneumonia; T17.890A Other foreign object in other parts of respiratory tract causing asphyxiation, initial encounter; J44.0 Chronic obstructive pulmonary disease with (acute) lower respiratory infection; E03.9 Hypothyroidism, unspecified; I10 Essential (primary) hypertension; J44.1 Chronic obstructive pulmonary disease with (acute) exacerbation; Z11.52 Encounter for screening for COVID-19; E83.42 Hypomagnesemia; K21.9 Gastro-esophageal reflux disease without esophagitis; N40.0 Benign prostatic hyperplasia without lower urinary tract symptoms; M19.90 Unspecified osteoarthritis, unspecified site; Z79.890 Hormone replacement therapy; Z79.899 Other long term (current) drug therapy; Z87.891 Personal history of nicotine dependence; Z87.19 Personal history of other diseases of the digestive system; Z91.048 Other nonmedicinal substance allergy status
CPT/HCPCS: 36415; 71046; 71260; 80048; 80053; 81003; 83605; 83735; 83880; 84145; 84443; 84484; 85025; 85379; 85610; 85730; 86140; 87040; 87070; 87205; 87449; 87636; 93005; 94640; 94760; 96361; 96365; 96366; 96372; 96375; 99285

== ENCOUNTER → 2024-09-23 | Outpatient (CLI) | payer BC ==
[2024-09-23 14:43] LABS: Basophils # (A) 0.07 X 10*3/uL (0.00-0.10); Basophils % (A) 0.9 %; Eosinophils # (A) 0.26 X 10*3/uL (0.04-0.35); Eosinophils % (A) 3.4 %; HCT 44.8 % (39.6-50.0); HGB 14.7 g/dL (13.0-17.0); Lymphocytes % (A) 32.2 %; MCH 27.5 pg (27.0-32.0); MCHC 32.8 g/dL (32.0-37.0); MCV 83.9 FL (80.0-97.0); Mean Platelet Volume 9.9 FL (9.5-12.2); Monocytes # (A) 0.82 X 10*3/uL (0.20-1.00); Monocytes % (A) 10.6 %; NRBC Per 100 WBC 0 X 10*3/uL (0.00-0.01); Neutrophils # (A) 4.02 X 10*3/uL (1.80-7.70); Neutrophils % (A) 51.7 %; Platelet Count 345 X 10*3/uL (140-440); RBC 5.34 X 10*6/uL (4.40-5.60); RDW 13.5 % (11.5-14.5); WBC 7.76 X 10*3/uL (4.50-10.00)
[2024-09-23 14:55] LABS: Erythrocyte Sedimentation Rate 18 mm/Hr (0-20)
[2024-09-23 15:19] LABS: Total Eosinophil Count 264 #EOS/uL (150-300)
[2024-09-23 20:35] LABS: Alternaria alternata IgE 0.23 kU/L; Aspergillus fumagatus IgE 3.45 kU/L; Birch IgE <0.10 kU/L; Cat Epith & Dander IgE <0.10 kU/L; Cladosporian herbarum IgE <0.10 kU/L; Cockroach IgE <0.10 kU/L; Dermato. farinae IgE <0.10 kU/L; Dog Dander IgE <0.10 kU/L; Elm IgE <0.10 kU/L; Maple (Box Elder) IgE <0.10 kU/L; Oak IgE <0.10 kU/L; Ragweed,Common IgE <0.10 kU/L; Red Top (Bentgrass) IgE <0.10 kU/L
== END | disposition home or self-care (01) ==
LOC: LABWHC1 09:53
PROVIDERS: ATTEND Internal Medicine
DX: J45.50 Severe persistent asthma, uncomplicated (principal)
CPT/HCPCS: 36415; 82785; 85008; 85025; 85652; 86003; 86038

== ENCOUNTER → 2024-10-21 | Outpatient (CLI) | payer BC ==
--- NOTE | 2024-10-21 12:09 | CT ---
EXAMINATION TYPE: CT chest w con DATE OF EXAM: 10/21/2024 10:49 AM COMPARISON: Chest radiograph from same day. Multiple CTs of the chest with most recent on . CLINICAL INDICATION: Male, 59 years old with history of B44.81 allergens; PHH, Allergic bronchopulmon jocelyne alpergillosis TECHNIQUE: Multiple axial images were obtained through the chest. Sagittal and coronal reformats were created for review. MIP was performed on a separate workstation. Contrast used:100 mL of Isovue 300 with IV Contrast (None if empty) Oral contrast used: (None if empty) CT DLP: 387.1 mGycm, Automated exposure control for dose reduction was used. FINDINGS: EXAMINATION TYPE: CT chest w con DATE OF EXAM: 10/21/2024 10:49 AM COMPARISON: Chest radiograph from same day. CLINICAL INDICATION: Male, 59 years old with history of B44.81 allergens; PHH, Allergic bronchopulmon jocelyne alpergillosis TECHNIQUE: Multiple axial images were obtained through the chest. Sagittal and coronal reformats were created for review. MIP was performed on a separate workstation. Contrast used:100 mL of Isovue 300 with IV Contrast (None if empty) Oral contrast used: (None if empty) CT DLP: 387.1 mGycm, Automated exposure control for dose reduction was used. FINDINGS: LUNGS/ PLEURA: Marked improvement of the right lower lobe airspace opacity seen on prior no remaining airspace opacities visualized. Right middle lobe pulmonary nodule measuring 2 mm series 4 image 26 i s unchanged. Similar right middle lobe pulmonary nodule measuring 5 mm series 4 image 41. No new or e nlarging pulmonary nodules. Scattered airspace opacities most pronounced in the lower lobes. Right greater than left.. No evidenc e for pneumothorax or pleural effusion. At least one airspace opacities has more of a nodular-like ap pearance. Example includes a nodular-like opacity series 201 image 32 measuring 10 mm. Right middle l obe pulmonary nodule measuring 5 mm series 201 image 42. There is an azygous fissure in the right upper lung. Scattered mild centrilobular emphysema changes. AIRWAY: Opacified airways demonstrate visualized on today's exam they have cleared since prior. HEART: Heart is within normal limits for size. No evidence for pulmonary hypertension are atheroscler osis of the arterial vasculature. No calcifications are identified within the aortic valve or mitral valve. MEDIASTINUM: No evidence for lymphadenopathy. Stable appearance of the mediastinal lymph nodes. The e sophagus without evidence for wall thickening. There is some ingested contents within the esophagus. Small hiatal hernia. VASCULATURE: No aortic aneurysm. Minimal scattered atherosclerotic plaque of the arterial vasculatur e. MUSCULOSKELETAL: No acute osseous abnormalities. There is multilevel degeneration changes of the spin e with osteophyte formation, vacuum disc phenomenon and facet joint arthropathy. T4 superior endplate mild compression deformity noted less than 25% height loss. More moderate to severe degeneration jeanette nges at C7-T1 with endplate sclerosis and osteophytes present. SOFT TISSUES/LYMPH NODES: Unremarkable. LOWER NECK: Visualized portions of the thyroid gland demonstrate no evidence for nodules. UPPER ABDOMEN: Visualized portions of the upper abdomen demonstrate normal appearance of the liver. T he gallbladder is unremarkable. The colon kim are without evidence for mass. Visualized kidneys are within normal limits without evidence for hydronephrosis or mass. The adrenal glands are within norm al limits. The pancreas is within normal limits. IMPRESSION: 1. Marked improvement of airspace disease predominantly in the right lower lung on prior. No enlarge d mediastinal lymph nodes identified. No significant airspace disease identified on today's exam. 2. Cleared opacified airways since prior exam. 3. Ingested contents within the esophagus correlate for esophageal dysmotility versus reflux. 4. Small hiatal hernia. [facility], , 10/21/2024 12:06 PM
--- NOTE | 2024-10-21 12:20 | CT ---
EXAMINATION TYPE: CT chest w con DATE OF EXAM: 10/21/2024 10:49 AM COMPARISON: CT 09/12/2024. CLINICAL INDICATION: Male, 59 years old with history of B44.81 allergens, Allergic bronchopulmonary alpergillosis TECHNIQUE: Multiple axial images were obtained through the chest. Sagittal and coronal reformats were created for review. MIP was performed on a separate workstation. Contrast used:100 mL of Isovue 300 with IV Contrast (None if empty) Oral contrast used: (None if empty) CT DLP: 387.1 mGycm, Automated exposure control for dose reduction was used. FINDINGS: LUNGS/ PLEURA: Marked improvement of the right lower lobe airspace opacity seen on prior no remaining airspace opacities visualized. Right middle lobe pulmonary nodule measuring 2 mm series 4 image 26 is unchanged. Similar right middle lobe pulmonary nodule measuring 5 mm series 4 image 41. No new or enlarging pulmonary nodules. There is an azygous fissure in the right upper lung. Scattered mild centrilobular emphysema changes. AIRWAY: Opacified airways demonstrate visualized on today's exam they have cleared since prior. HEART: Heart is within normal limits for size. No evidence for pulmonary hypertension are atherosclerosis of the arterial vasculature. No calcifications are identified within the aortic valve or mitral valve. MEDIASTINUM: No evidence for lymphadenopathy. Stable appearance of the mediastinal lymph nodes. The esophagus without evidence for wall thickening. There is some ingested contents within the esophagus. Small hiatal hernia. VASCULATURE: No aortic aneurysm. Minimal scattered atherosclerotic plaque of the arterial vasculature. MUSCULOSKELETAL: No acute osseous abnormalities. There is multilevel degeneration changes of the spine with osteophyte formation, vacuum disc phenomenon and facet joint arthropathy. T4 superior endplate mild compression deformity noted less than 25% height loss. More moderate to severe degeneration changes at C7-T1 with endplate sclerosis and osteophytes present. SOFT TISSUES/LYMPH NODES: Unremarkable. LOWER NECK: Visualized portions of the thyroid gland demonstrate no evidence for nodules. UPPER ABDOMEN: Visualized portions of the upper abdomen demonstrate normal appearance of the liver. The gallbladder is unremarkable. The colon kim are without evidence for mass. Visualized kidneys are within normal limits without evidence for hydronephrosis or mass. The adrenal glands are within normal limits. The pancreas is within normal limits. IMPRESSION: 1. Marked improvement of airspace disease predominantly in the right lower lung on prior. No enlarged mediastinal lymph nodes identified. No significant airspace disease identified on today's exam. 2. Cleared opacified airways since prior exam. 3. Ingested contents within the esophagus correlate for esophageal dysmotility versus reflux. 4. Small hiatal hernia. [facility], , 10/21/2024 12:19 PM [facility]
== END | disposition home or self-care (01) ==
LOC: RADCTMAIN 09:57
PROVIDERS: ATTEND Internal Medicine
DX: J98.4 Other disorders of lung (principal); B44.81 Allergic bronchopulmonary aspergillosis; K44.9 Diaphragmatic hernia without obstruction or gangrene; K22.89 Other specified disease of esophagus
CPT/HCPCS: 71260; Q9967